=== PATIENT | male | born 1980 | race Caucasian/White ===

== ENCOUNTER 2022-12-07 10:51 | Emergency (ER) | payer MEDICAID ==
[~2022-12-07] VITALS: Ht 170.2 cm; Wt 68.0 kg
[2022-12-07 10:57] VITALS: TEMP 98.7; O2SAT 99
[2022-12-07 17:41] VITALS: BP 106/67; PULSE 59; RESP 14
== END 2022-12-07 17:43 | disposition home or self-care (01) ==
LOC: ER 12:23
DX: R53.83 Other fatigue (principal); Z98.890 Other specified postprocedural states
CPT/HCPCS: 99283